=== PATIENT | male | born 1995 | race Caucasian/White ===

== ENCOUNTER 2019-07-02 17:33 | Emergency (ER) | payer MEDICAID ==
[~2019-07-02] VITALS: Ht 149.9 cm; Wt 78.5 kg
[2019-07-02 17:44] VITALS: BP 137/64
[2019-07-02] MEDS ORDERED: ACETAMINOPHEN EXTRA STRENGTH 500 MG TAB PO ONE (17:50)
--- NOTE | 2019-07-02 17:50 | NUR ---
BIBA W C/O SORE THROAT, COUGH AND FEVER X2 DAYS. PT IS FEBRILE AT 102.2 AT THIS TIME. PT DENIES DIFFICULTY BREATHING. BREATHING UNLABORED. SPO2 95% RA. LUNGS CAEBL. DRY COUGH PRESENT AT THIS TIME. BED IN LOW POSITION, SIDE RAIL UP X2 FOR PT SAFTEY. PT IS AUTISTIC FROM DETENTION BUT IS NOT ACCOMPANIED BY A CAREGIVER.
--- NOTE | 2019-07-02 18:40 | NUR ---
ERMD AT BEDSIDE
--- NOTE | 2019-07-02 19:01 | NUR ---
PT CALLED MOTHER A FEW TIMES FOR [employer]---[facility] WAS CALLED, I SPOKE RHONA. THEY ARE ON THE WAY FOR [employer]
[2019-07-02 19:34] VITALS: BP 132/78
--- NOTE | 2019-07-02 19:34 | NUR ---
Patient discharged with v/s stable. No complaints upon DC. States relief. Written and verbal after care instructions given and explained to patient and caregiver. Patient alert, oriented and verbalized understanding of instructions to patient and caregiver. Ambulatory with steady gait. All questions addressed prior to discharge. ID band removed. Patient advised to follow up with PMD. Rx of Promethazine/Dextromethorphan and Tamiflu given. Patient and caregiver educated on indication of medication including possible reaction and side effects. Opportunity to ask questions provided and answered.
== END 2019-07-02 19:34 | disposition home or self-care (01) ==
LOC: MED 17:33
DX: J11.1 Influenza due to unidentified influenza virus with other respiratory manifestations (principal); F79 Unspecified intellectual disabilities
CPT/HCPCS: 99283

== ENCOUNTER 2023-09-12 14:32 | Emergency (ER) | payer OTHER, MEDICAID ==
[~2023-09-12] VITALS: Ht 147.3 cm; Wt 83.6 kg
[~2023-09-12 14:32] MED LIST: AZIT250T11 PO; DEXA6TAB1 PO; LOV40I SUBQ; METF-346 PO; ROC250I IV; VITC500 PO; VITD400 PO; ZINC220C28 PO
[2023-09-12 14:40] VITALS: BP 105/74; PULSE 116; RESP 20; TEMP 98.9; O2SAT 95
[2023-09-12 15:31] VITALS: PULSE 110; RESP 20; O2SAT 96; O2SAT 98
[2023-09-12] MEDS: ALBUTEROL 0.083% 2.5 MG/3 ML NEBU INH ONE (15:33)
[2023-09-12 16:13] LABS: BASOPHILS % (AUTO) 0.7 % (0.0-2.0); EOSINOPHILS % (AUTO) 0.9 % (0.0-4.0); HEMATOCRIT 42.2 % (36-52); HEMOGLOBIN 14.7 g/dL (12.0-18.0); LYMPHOCYTES # (AUTO) 0.8 K/uL (2.0-11.5); MEAN CORPUSCULAR HEMOGLOBIN 32 pg (27-31); MEAN CORPUSCULAR HGB CONC 35 g/dL (33-37); MEAN CORPUSCULAR VOLUME 91.2 fL (80-94); MONOCYTES # (AUTO) 0.5 K/uL (0.8-1.0); MONOCYTES % (AUTO) 9.4 % (1.7-9.3); NEUTROPHILS # (AUTO) 4.4 K/uL (1.8-7.7); PLATELET COUNT (AUTO) 171 K/uL (140-450); RED BLOOD CELL COUNT(AUTO) 4.62 MIL/uL (4.20-6.10); RED CELL DISTRIBUTION WIDTH 13.5 % (11.6-13.7); WHITE BLOOD COUNT (AUTO) 5.8 K/uL (4.8-10.8)
[2023-09-12] MEDS: NACL 0.9% 1,000 ML IV ONE (16:23)
[2023-09-12 16:26] LABS: INR 0.94 (0.8-1.2); PARTIAL THROMBOPLASTIN TIME 23.4 secs (22-35.6); PROTHROMBIN TIME 9.9 secs (10.8-13.4)
[2023-09-12 16:29] LABS: ANION GAP 9.3 (8-16); CALCIUM 9.1 mg/dL (8.5-10.1); CARBON DIOXIDE 30.8 mmol/L (21-32); CREATININE 1.1 mg/dL (0.6-1.3); POTASSIUM 4.1 mmol/L (3.5-5.1)
[2023-09-12 16:34] LABS: ALANINE AMINOTRANSFERASE 30 U/L (12-78); ALBUMIN 2.9 g/dL (3.4-5.0); ALKALINE PHOSPHATASE 132 U/L (50-136); ASPARTATE AMINOTRANSFERASE 21 U/L (15-37); BILIRUBIN,DIRECT 0.1 mg/dL (0.0-0.3); CREATINE KINASE, TOTAL 69 U/L (39-308); TOTAL BILIRUBIN 0.4 mg/dL (0.0-1.0); TOTAL PROTEIN, SERUM 8.3 g/dL (6.4-8.2)
[2023-09-12 16:57] LABS: FLU A ANTIGEN negative (NEGATIVE); FLU B ANTIGEN NEGATIVE (NEGATIVE)
[2023-09-12 16:58] LABS: APPEARANCE,URINE CLEAR (CLEAR); BILIRUBIN,URINE NEGATIVE (NEGATIVE); BLOOD, URINE NEGATIVE (NEGATIVE); COLOR,URINE YELLOW (YELLOW); LEUKOCYTE ESTERASE ,URINE NEGATIVE (NEGATIVE); NITRITE, URINE NEGATIVE (NEGATIVE); PH,URINE 6.5 (5.0-9.0); PROTEIN,URINE NEGATIVE (NEGATIVE); UGLUCOSE NEGATIVE (NEGATIVE); UROBILINOGEN,URINE 0.2 EU/dL (0.2 - 1)
[2023-09-12] MEDS: DEXAMETHASONE 10 MG/ML VIAL IVP ONE (18:16)
[2023-09-12] MEDS: INSULIN LANTUS 100 UNITS/ML 10 ML VIAL SUBQ ONE (19:24)
[2023-09-12] MEDS ORDERED: AMPICILLIN/SULBACTAM 3 GM VIAL ONE (20:17)
[2023-09-12] MEDS ORDERED: AMOX1TAB8 PO (20:21)
[2023-09-12] MEDS: AMPICILLIN/SULBACTAM 3 GM in NACL 0.9% 100 ML IV ONE (20:37)
[2023-09-12 20:48] VITALS: TEMP 97.3
[2023-09-12 21:42] VITALS: BP 125/82; PULSE 98; RESP 16; O2SAT 96
== END 2023-09-12 21:42 | disposition home or self-care (01) ==
LOC: MED 14:32
DX: J02.0 Streptococcal pharyngitis (principal); Z20.822 Contact with and (suspected) exposure to COVID-19; R00.0 Tachycardia, unspecified; R59.0 Localized enlarged lymph nodes; E11.9 Type 2 diabetes mellitus without complications; Z79.899 Other long term (current) drug therapy
CPT/HCPCS: 36415; 70491; 71045; 80048; 80076; 81003; 82550; 82553; 82948; 83605; 83880; 84484; 85025; 85610; 85730; 87040; 87081; 87086; 87426; 87804; 93005; 94640; 96361; 96365; 96375; 99285; J0295; J1100; J1815; J7030; J7613; Q9967